=== PATIENT | male | born 1975 | race Caucasian/White ===

== ENCOUNTER 2023-06-28 09:36 | Emergency (ER) | payer OTHER, SELFPAY ==
[2023-06-28 09:49] VITALS: BP 137/98; PULSE 80; RESP 16; TEMP 37.1; O2SAT 97; BMI 25.0
--- NOTE | 2023-06-28 10:06 | W.ED.EXTPRO ---
HPI - Extremity Problem General: Chief complaint: Extremity Injury, Lower Stated complaint: Hurt right foot Time Seen by Provider: 06/28/23 10:06 History of Present Illness: This patient is a 48-year-old white male who got his right foot crushed between a trailer hitch and bumper just prior to arrival. Review of Systems General: Reports: 10 or more systems reviewed and unremarkable except in HPI and below Physical Exam Const: COMMON NORMALS: no acute distress and healthy appearing Extremity: NARRATIVE EXTREMITY EXAM: Some pain to palpation over the medial aspect and the arch of the right foot. Some mild swelling to the area. No gross abnormality. He can move all of the toes of the right foot. No open wounds. Course Vital Signs: Vital signs: Vital Signs Temperature 98.8 F 06/28/23 09:49 Pulse Rate 80 06/28/23 09:49 Respiratory Rate 16 06/28/23 09:49 Blood Pressure 137/98 06/28/23 09:49 Pulse Oximetry 97 06/28/23 09:49 Oxygen Delivery Me thod Room Air 06/28/23 09:49 MDM - Extremity (Nontraumatic) Medical Decision Making X-rays of the right foot did not reveal any fractures. Patient was instructed to ice the area down for 15 to 20 minutes 3-4 times per day. Take ibuprofen as needed. Keep it elevated. Follow-up with primary care physician as needed. He was discharged in stable condition. Lab Data Radiology Impressions Foot X-Ray 06/28/23 10:09 IMPRESSION: No acute findings. All radiology interpretation(s) finalized by discharge Discharge Plan Discharge Patient Disposition: Home Clinical Impression: Contusion of foot Condition: Stable Discharge Orders: Discharge ED (Routine); Ordered 06/28/23 Ordered By: Julio Avila Patient Instructions: Contusion Coding Level of Care Code ED Detail Technician for Jeanne Horton
--- NOTE | 2023-06-28 10:09 | XRR_ITS ---
PROCEDURE INFORMATION: Exam: XR Right Foot Exam date and time: 06/28/2023 10:17 AM Age: 48 years old Clinical indication: Injury or trauma; Fall; Blunt trauma; Foot; Right; Additional info: Crush injury TECHNIQUE: Imaging protocol: Radiologic exam of the right foot. Views: 3 or more views. COMPARISON: No relevant prior studies available. FINDINGS: Bones/joints: Negative for acute bony abnormality. Soft tissues: Normal. XR/XR foot RT min 3V* [id number] IMPRESSION: No acute findings.
[2023-06-28 10:54] VITALS: BP 151/108; PULSE 75; O2SAT 95
[2023-06-28 10:55] VITALS: BP 151/108; PULSE 75; O2SAT 95
== END 2023-06-28 10:58 | disposition home or self-care (01) ==
PROVIDERS: Emergency Provider Emergency Medicine
DX: S90.31XA Contusion of right foot, initial encounter (principal); W23.0XXA Caught, crushed, jammed, or pinched between moving objects, initial encounter
CPT/HCPCS: 73630; 99283